=== PATIENT | male | born 1955 | race Caucasian/White ===

== ENCOUNTER 2018-08-28 17:19 | Emergency (ER) | payer MEDICAID ==
[~2018-08-28] VITALS: Ht 175.3 cm; Wt 75.3 kg
[2018-08-28 17:36] VITALS: BP_SYST 160
[2018-08-28] MEDS ORDERED: NACL 0.9% 1,000 ML IV ONE (17:47)
[2018-08-28] MEDS ORDERED: CLOPIDOGREL BISULFATE 75 MG TABLET PO ONE (18:00)
[2018-08-28 18:31] LABS: BASOPHILS # (AUTO) 0.1 K/uL (0.0-0.2); BASOPHILS % (AUTO) 0.7 % (0.0-2.0); EOSINOPHILS # (AUTO) 0.1 K/uL (0.0-0.4); HEMATOCRIT 39.8 % (36-54); HEMOGLOBIN 13.5 g/dL (14.0-18.0); LYMPHOCYTES # (AUTO) 1.5 K/uL (1.0-5.5); LYMPHOCYTES % (AUTO) 17.1 % (20.5-51.5); MEAN CORPUSCULAR HEMOGLOBIN 32 pg (27-31); MEAN CORPUSCULAR HGB CONC 34 % (32-36); MEAN CORPUSCULAR VOLUME 94 fL (79.0-98.0); MONOCYTES # (AUTO) 0.6 K/uL (0.0-1.0); MONOCYTES % (AUTO) 6.7 % (1.7-9.3); NEUTROPHILS # (AUTO) 6.3 K/uL (1.8-7.7); NEUTROPHILS % (AUTO) 74.5 % (40.0-70.0); PLATELET COUNT (AUTO) 226 K/uL (130-430); RED BLOOD CELL COUNT(AUTO) 4.24 MIL/uL (4.2-6.2); RED CELL DISTRIBUTION WIDTH 13.1 % (9.0-15.0); WHITE BLOOD COUNT (AUTO) 8.5 K/uL (4.8-10.8)
[2018-08-28 18:53] LABS: ALANINE AMINOTRANSFERASE 23 U/L (12-78); ALBUMIN 3.9 g/dL (3.4-4.8); ASPARTATE AMINOTRANSFERASE 15 U/L (10-37); CALCIUM 9.1 mg/dL (8.4-11.0); CHLORIDE 90 mmol/L (98-107); CREATININE 0.74 mg/dL (0.55-1.30); GLUCOSE 95 mg/dL (70-99); POTASSIUM 3.8 mmol/L (3.5-5.1); SODIUM SERUM 126 mmol/L (136-145); TOTAL BILIRUBIN 0.6 mg/dL (0.0-1.0); UREA NITROGEN, BLOOD 11 mg/dL (8-21)
[2018-08-28 19:06] LABS: GFR AFRICAN AMERICAN 137 mL/min (>90)
[2018-08-28 19:10] LABS: ANION GAP 12 (5-15)
[2018-08-28] MEDS ORDERED: LOSA25TA3 PO (19:29)
[2018-08-28] MEDS ORDERED: HYDR12.585 PO (19:29)
[2018-08-28 21:16] VITALS: BP_SYST 151
== END 2018-08-28 21:18 | disposition short-term general hospital (02) ==
LOC: SED 17:19
DX: E87.1 Hypo-osmolality and hyponatremia (principal); R07.89 Other chest pain; I10 Essential (primary) hypertension; Z88.0 Allergy status to penicillin; Z88.6 Allergy status to analgesic agent; Z79.899 Other long term (current) drug therapy
CPT/HCPCS: 36415; 71045; 80053; 84484; 85025; 93005; 99285; J7030